=== PATIENT | female | born 1940 | race Caucasian/White ===

== ENCOUNTER 2020-06-04 10:44 | Emergency (ER) | payer MEDICARE, OTHER ==
[~2020-06-04 10:44] MED LIST: NORCO 5-325 TA1 EACH PO; OMNICEF 300 MG300 MG PO
== END 2020-06-04 14:55 | disposition other institution (70) ==
LOC: ER1 10:44
DX: S72.002A Fracture of unspecified part of neck of left femur, initial encounter for closed fracture (principal); F17.290 Nicotine dependence, other tobacco product, uncomplicated; Z90.710 Acquired absence of both cervix and uterus; W01.0XXA Fall on same level from slipping, tripping and stumbling without subsequent striking against object, initial encounter; Y92.009 Unspecified place in unspecified non-institutional (private) residence as the place of occurrence of the external cause
CPT/HCPCS: 51702; 73030; 73060; 73502; 73552; 99284

== ENCOUNTER 2020-11-17 10:38 | Emergency (ER) | payer MEDICARE ==
[~2020-11-17] VITALS: Ht 165.1 cm; Wt 90.7 kg
== END 2020-11-17 14:30 | disposition home or self-care (01) ==
LOC: ER1 10:38
DX: Z23 Encounter for immunization (principal); U07.1 COVID-19
CPT/HCPCS: 99283; M0243

== ENCOUNTER → 2021-03-28 | Outpatient (CLI) | payer MEDICARE ==
[~2021-03-28] VITALS: Ht 165.1 cm; Wt 63.5 kg
== END ==
LOC: EROP 11:46
DX: Z23 Encounter for immunization (principal); I25.10 Atherosclerotic heart disease of native coronary artery without angina pectoris; D84.9 Immunodeficiency, unspecified; J44.9 Chronic obstructive pulmonary disease, unspecified; C80.1 Malignant (primary) neoplasm, unspecified; N18.2 Chronic kidney disease, stage 2 (mild); Z86.73 Personal history of transient ischemic attack (TIA), and cerebral infarction without residual deficits; U07.1 COVID-19
CPT/HCPCS: M0247; Q0247

== ENCOUNTER 2021-06-05 19:07 | Inpatient (IN) | payer MEDICARE ==
[~2021-06-05] VITALS: Ht 167.6 cm; Wt 72.6 kg
[2021-06-05 19:56] LABS: HEMOGLOBIN 12.8 gm/dl (12.3-15.3); RED BLOOD COUNT 4.01 M/UL (4.00-5.10); WHITE BLOOD COUNT 12.9 K/UL (4.5-11.0)
[2021-06-05 20:19] LABS: BUN/CREATININE RATIO 19 (0-10)
[2021-06-06] MEDS ORDERED: ATORVASTATIN CA20 MG PO (02:56)
[2021-06-06] MEDS ORDERED: METHOTREXATE T2.5 MG PO (02:57)
[2021-06-06] MEDS ORDERED: DONEPEZIL HCL10 MG PO (03:00)
[2021-06-06] MEDS ORDERED: LEVOFLOXACIN500 MG PO (03:00)
[2021-06-06] MEDS ORDERED: LANSOPRAZOLE30 MG PO (03:01)
[2021-06-06] MEDS ORDERED: FEROSUL325 MG PO (03:01)
[2021-06-06] MEDS ORDERED: ESCITALOPRAM OX10 MG PO (03:04)
[2021-06-06] MEDS ORDERED: MACROBID 100 M100 M1 PO (03:04)
[2021-06-06 06:56] LABS: HEMOGLOBIN 10.6 gm/dl (12.3-15.3); RED BLOOD COUNT 3.41 M/UL (4.00-5.10)
[2021-06-06] MEDS ORDERED: FOLIC ACID1 MG PO (10:03)
[2021-06-06] MEDS ORDERED: CRANBERRY500 M3 PO (10:04)
[2021-06-06] MEDS ORDERED: ASPIRIN EC81 MG PO (10:04)
[2021-06-07 03:06] LABS: HEMOGLOBIN 10.5 gm/dl (12.3-15.3); RED BLOOD COUNT 3.33 M/UL (4.00-5.10)
[2021-06-07 04:00] LABS: BUN/CREATININE RATIO 18 (0-10)
[2021-06-08 03:10] LABS: HEMOGLOBIN 11.1 gm/dl (12.3-15.3); RED BLOOD COUNT 3.54 M/UL (4.00-5.10)
[2021-06-08 03:15] LABS: WHITE BLOOD COUNT 5.3 K/UL (4.5-11.0)
[2021-06-08 03:32] LABS: BUN/CREATININE RATIO 12 (0-10)
[2021-06-09 03:20] LABS: HEMOGLOBIN 11.3 gm/dl (12.3-15.3); RED BLOOD COUNT 3.57 M/UL (4.00-5.10); WHITE BLOOD COUNT 5.4 K/UL (4.5-11.0)
[2021-06-09 03:47] LABS: BUN/CREATININE RATIO 10 (0-10)
[2021-06-10 05:19] LABS: HEMOGLOBIN 10.6 gm/dl (12.3-15.3); RED BLOOD COUNT 3.33 M/UL (4.00-5.10); WHITE BLOOD COUNT 5.2 K/UL (4.5-11.0)
[2021-06-10 05:40] LABS: BUN/CREATININE RATIO 12 (0-10)
[2021-06-13 03:38] LABS: HEMOGLOBIN 10.5 gm/dl (12.3-15.3); RED BLOOD COUNT 3.36 M/UL (4.00-5.10); WHITE BLOOD COUNT 6.2 K/UL (4.5-11.0)
[2021-06-13 04:08] LABS: BUN/CREATININE RATIO 14 (0-10)
[2021-06-14 03:21] LABS: HEMOGLOBIN 10.1 gm/dl (12.3-15.3); RED BLOOD COUNT 3.18 M/UL (4.00-5.10); WHITE BLOOD COUNT 5.6 K/UL (4.5-11.0)
[2021-06-14 03:51] LABS: BUN/CREATININE RATIO 19 (0-10)
== END 2021-06-15 15:42 | DRG 871 ==
LOC: ER1 19:07 → CDU 23:46 → M/S 23:46
PROVIDERS: Family Medicine; ADMIT Internal Medicine
PROC: 3E03329 Introduction of Other Anti-infective into Peripheral Vein, Percutaneous Approach (ICD-10-PCS; principal; 2021-06-05)
PROC: XW023U6 Introduction of COVID-19 Vaccine into Muscle, Percutaneous Approach, New Technology Group 6 (ICD-10-PCS; 2021-06-13)
DX: A41.9 Sepsis, unspecified organism (principal); G93.41 Metabolic encephalopathy; J90 Pleural effusion, not elsewhere classified; A09 Infectious gastroenteritis and colitis, unspecified; E86.0 Dehydration; J44.9 Chronic obstructive pulmonary disease, unspecified; R94.5 Abnormal results of liver function studies; F01.50 Vascular dementia, unspecified severity, without behavioral disturbance, psychotic disturbance, mood disturbance, and anxiety; I10 Essential (primary) hypertension; R65.20 Severe sepsis without septic shock; M06.9 Rheumatoid arthritis, unspecified; E78.5 Hyperlipidemia, unspecified; M19.91 Primary osteoarthritis, unspecified site; R53.81 Other malaise; Z86.73 Personal history of transient ischemic attack (TIA), and cerebral infarction without residual deficits; Z85.3 Personal history of malignant neoplasm of breast; Z90.12 Acquired absence of left breast and nipple; Z88.2 Allergy status to sulfonamides; Z88.8 Allergy status to other drugs, medicaments and biological substances; Z79.82 Long term (current) use of aspirin; Z79.899 Other long term (current) drug therapy; Z99.81 Dependence on supplemental oxygen
CPT/HCPCS: 0240U; 36415; 71045; 71260; 80048; 80053; 80076; 81001; 83605; 83735; 83880; 84100; 85025; 85027; 85610; 86140; 87040; 87086; 91306; 93005; 94640; 94664; 94760; 97110; 97110-GP-CQ; 97162; 97166; 97530; 97530-GP-CQ; 99285; J0696; J1335; J1650; J2405; J7030; J7040; Q9967; U0002